=== PATIENT | male | born 1990 | race African-American/Black ===

== ENCOUNTER 2025-06-25 09:54 | Outpatient (CLI) | payer OTHER, SELFPAY ==
--- NOTE | 2025-06-25 10:20 | NEURO_ITS ---
Impression: # Complains of numbness of right upper and lower extremity ? # No Carpal Tunnel Syndrome ? # Right Ulnar Neuropathy across the elbow ? # No response on right Superficial Peroneal Nerve ? # Normal Needle/ EMG exam of right upper and lower extremity Nerve Conduction Studies ?Stim Site NR Peak (ms) P-T Amp (?V) Site1 Site2 Delta-P (ms) Dist (cm) Cezar (m/s) Right Median Anti Sensory (2-3nd Digit) Wrist ? 2.7 32.8 Wrist 2-3nd Digit 2.7 14.0 52 Wrist ? 2.7 25.9 Wrist 2-3nd Digit 2.7 14.0 52 Right Radial Anti Sensory (Base 1st Digit) Wrist ? 2.4 14.9 Wrist Base 1st Digit 2.4 0.0 Right Sup Fibular Anti Sensory (Ant Lat Mall)??? NO RESPONSE 14 cm NR 14 cm Ant Lat Mall 16.0 Right Sural Anti Sensory (Lat Mall) Calf ? 3.8 9.3 Calf Lat Mall 3.8 16.0 42 Right Ulnar Anti Sensory (5th Digit) Wrist ? 2.6 18.3 Wrist 5th Digit 2.6 14.0 54 ?Stim Site NR Onset (ms) O-P Amp (mV) Site1 Site2 Delta-0 (ms) Dist (cm) Cezar (m/s) Right Median Motor (Abd Poll Brev) Wrist ? 3.4 3.2 Elbow Wrist 5.4 31.0 57 Elbow ? 8.8 2.7 Right Peroneal Motor (Vastus Med) Ankle ? 4.0 4.4 Popit Ankle 8.9 42.0 47 Popit ? 12.9 4.1 Right Tibial Motor (Abd Brev) Ankle ? 4.8 3.3 Knee Ankle 10.0 45.0 45 Knee ? 14.8 2.1 Right Ulnar Motor (Abd Dig Minimi) Wrist ? 2.3 4.8 A Elbow Wrist 6.4 33.0 52 A Elbow ? 8.7 3.0 B Elbow Wrist 4.5 23.0 51 B Elbow ? 6.8 2.3 F Wave Studies ?NR F-Lat (ms) L-R F-Lat (ms) Right Median (Mrkrs) (Abd Poll Brev) ? 28.87 Right Peroneal (Mrkrs) (EDB) ? 50.63 Right Tibial (Mrkrs) (Abd Hallucis) ? 53.88 Right Ulnar (Mrkrs) (Abd Dig Min) ? 30.71 Electromyography ?Side Muscle Nerve Root Ins Act Fibs Amp Dur Recrt Comment Right Ext Indicis Radial (Post Int) C7-8 Nml Nml Nml Nml Nml Right 1stDorInt Ulnar C8-T1 Nml Nml Nml Nml Nml Right Ext Digitorum Radial (Post Int) C7-8 Nml Nml Nml Nml Nml Right BrachioRad Radial C5-6 Nml Nml Nml Nml Nml Right PronatorTeres Median C6-7 Nml Nml Nml Nml Nml Right Abd Poll Brev Median C8-T1 Nml Nml Nml Nml Nml Right ABD Dig Min Ulnar C8-T1 Nml Nml Nml Nml Nml Right FlexPolLong Median (Ant Int) C7-8 Nml Nml Nml Nml Nml Right Abd Poll Long Radial (Post Int) C7-8 Nml Nml Nml Nml Nml Right AntTibialis Dp Br Fibular L4-5 Nml Nml Nml Nml Nml Right Gastroc Tibial S1-2 Nml Nml Nml Nml Nml Right Fibularis Long Sup Br Fibular L5-S1 Nml Nml Nml Nml Nml Right Flex Dig Long Tibial L5-S2 Nml Nml Nml Nml Nml Right Ext Dig Brev Dp Br Fibular L5, S1 Nml Nml Nml Nml Nml Right QuadratusFem QuadFemoris L4-5, S1 Nml Nml Nml Nml Nml Right Biceps Musculocut C5-6 Nml Nml Nml Nml Nml Right Triceps Radial C6-7-8 Nml Nml Nml Nml Nml Right Deltoid Axillary C5-6 Nml Nml Nml Nml Nml
== END 2025-06-25 09:55 | disposition home or self-care (01) ==
LOC: ANHNEURO 10:00
PROVIDERS: Visit Provider Internal Medicine
DX: G56.21 Lesion of ulnar nerve, right upper limb (principal)
CPT/HCPCS: 95886; 95911